=== PATIENT | female | born 1965 ===

== ENCOUNTER 2019-04-15 12:24 | Inpatient (IN) ==
[2019-04-15] MEDS ORDERED: VANCOMYCIN HCL 1,750 MG in SODIUM CHLORIDE 0.9% 500 ML IV ONE (12:53)
[2019-04-15] MEDS ORDERED: cefTRIAXone SODIUM 1,000 MG/50 ML BAG IV STA (12:53)
[2019-04-15] MEDS ORDERED: VANCOMYCIN CONSULT ACTIVE PRN (12:53)
[2019-04-15] MEDS ORDERED: SODIUM CHLORIDE 0.9% 1000ML 1,000 ML IV SCH (13:00)
[2019-04-15 13:34] LABS: Basophils # (auto) 0.01 K/uL (0-0.2); Basophils % (auto) 0.1 %; Eosinophils # (auto) 0.05 K/uL (0-0.5); Eosinophils % (auto) 0.7 %; Hematocrit (blood only) 41.3 % (37-47); Hemoglobin 13.5 g/dL (12.0-16.0); Immature Granulocytes # (auto) 0.01 K/uL (0.00-0.02); Immature Granulocytes % (auto) 0.1 %; Lymphocytes # (auto) 1.13 K/uL (1.2-3.4); Lymphocytes % (auto) 15.5 %; Mean Corpuscular Hemoglobin 29.7 pg (25-34); Mean Corpuscular Hgb Conc 32.7 g/dL (32-36); Mean Platelet Volume 11.1 fL (7.4-10.4); Monocytes # (auto) 0.48 K/uL (0.11-0.59); Monocytes % (auto) 6.6 %; Platelet Count 178 K/uL (130-400); RDW Coefficient of Variation 13.8 % (11.5-14.5); RDW Standard Deviation 45.9 fL (36.4-46.3); Red Blood Count 4.54 M/uL (4.2-5.4); White Blood Count 7.28 K/uL (4.8-10.8)
--- NOTE | 2019-04-15 13:43 | Emergency Department Note ---
Entered by Mik Alicia acting as a scribe for History of Present Illness General Chief complaint: Skin Problem Stated complaint: RASH ON BREAST AND STOMACH Time Seen by Provider: 04/15/19 12:40 Source: patient History of Present Illness Onset (ago): day(s) (yesterday) Location: chest (both breasts) and abdomen Pain Consistency: + other (worsening) Maximum Pain Intensity: 7 Quality: + other (rash) The patient is a 53 y/o female who presents to the ED w/ CC of a worsening rash to her breasts and abdomen beginning yesterday. The patient states she woke up two days ago with soreness and achiness to her joint. She reports she took a shower that evening and then woke up yesterday with a red splotch on her breast. The patient notes she was evaluated at urgent care, told she has mastitis, and started on Keflex. She states she started the Keflex yesterday morning. The patient reports she went to sleep last night, woke up this morning, and then noticed her rash spread to her right breast and abdomen. She notes she called urgent care back and was given a prescription for doxycycline but has not picked it up yet. The patient states she has a mastectomy scheduled for in a few weeks. She reports subjective fevers and denies drainage. The patient notes she had a breast reduction one year ago and did not have mesh put into her breast. She states she takes omeprazole daily and uses alcohol socially. The patient reports a history of a hysterectomy, appendectomy, and cholecystectomy. She denies using tobacco. Home Medications Home Medications Medication Instructions Recorded Confirmed Type cephalexin 500 mg PO QID 04/15/19 04/15/19 History ibuprofen 600 mg PO Q6H PRN 04/15/19 04/15/19 History omeprazole 20 mg PO QAM 04/15/19 04/15/19 History Allergies Allergy/AdvReac Type Severity Reaction Status Date / Time rofecoxib [From Vioxx] Allergy Intermediate Joint Pain Verified 04/15/19 14:28 Sulfa (Sulfonamide Allergy Intermediate Unknown Verified 04/15/19 14:28 Antibiotics) Past Med/Surg History Medical History GERD (gastroesophageal reflux disease) Surgical History H/O abdominoplasty H/O arthroscopic knee surgery H/O wisdom tooth extraction H/O: hysterectomy History of appendectomy History of bladder suspension procedure History of carpal tunnel surgery Hx of cholecystectomy Hx of tonsillectomy Family History Mother Dementia Father CHF (congestive heart failure) Social History Preferred Language: Romanian Communication Ability: Effective Magistrate Required: Yes Beliefs That Will Affect Care: None Current Living Situation: Spouse Other Information That Helps Us Care for You: No Feels Safe at Home: Yes Safety Concerns: Feels Safe At This Time Smoking Status: Former smoker Do You Dip or Chew Tobacco: No ; Second Hand Exp osure: No ; Hx Alcohol Use: Yes Alcohol type: wine Alcohol Intake Frequency: Weekly Hx Substance Use: No Review of Systems See HPI for pertinent positives & negatives. and A total of 10 systems reviewed and were otherwise negative Physical Exam Vital Signs Vital Signs - 24 hr 04/15/19 12:30 04/15/19 13:25 Temperature 36.8 C Temperature Source Oral Pulse Rate 95 H Pulse Rate [Apical] 83 Pulse Rhythm [Apical] Regular Respiratory Rate 20 18 Respiratory Effort / Characteristics Non-Labored Respiratory Depth Normal Respiratory Pattern Regular Blood Pressure 202/124 H Blood Pressure [Left Arm] 159/102 H Blood Pressure Mean 150 Blood Pressure Mean [Left Arm] 121 Blood Pressure Position [Left Arm] Sitting Pulse Oximetry 100 97 Oxygen Delivery Method Room Air Room Air Sepsis Recent Fever Within 48 Hours No Sepsis Action Taken by Nursing No Action Required GENERAL: Patient is awake alert in no acute distress patient is resting comfortably and showing no signs of anxiety EYES: The conjunctivae are clear. The pupils are round and reactive. EARS, NOSE, MOUTH AND THROAT: The nose is without any evidence of any deformity. Mucous membranes are moist. Tongue is midline. NECK: The neck is nontender and supple. RESPIRATORY: Normal respiratory effort is noted there is no evidence of wheezing rhonchi or rales CARDIOVASCULAR: Regular rate and rhythm noted there no murmurs rubs or gallops normal S1 normal S2. GASTROINTESTINAL: The abdomen is soft. Abdomen is nontender. MUSCULOSKELETAL/EXTREMITIES: There is no evidence of gross deformity full range of motion is noted in the hips and shoulders. SKIN: There is significant cellulitis noted over the anterior chest wall in the upper abdomen. This involves both breasts as well as the majority of the abdomen. There is no fluctuance noted in either breast. There is no drainage noted from the breast. NEUROLOGIC: Patient is awake alert and oriented x3. Course Course 1247: The patient was evaluated in room B10. A complete history and physical exam was performed. 1440: I reevaluated the patient and updated her of her current test results. She is agreeable to a hospitalist evaluation as I feel the cellulitics is too extensive 1447: I reviewed the patient's case with JULES Angulo, [facility], attending Dr. Tuttle. She will evaluate the patient for further management. Administered Medications Discontinued Medications Sodium Chloride (Nss 1000ml) 1,000 mls @ 999 mls/hr IV .Q1H1M MAINE Stop: 04/15/19 14:00 Last Infusion: 04/15/19 15:02 Dose: 0 mls/hr Documented by: [id number] Admin: 04/15/19 13:29 Dose: 999 mls/hr Documented by: [id number] Ceftriaxone Sodium (Rocephin) 1,000 mg in 50 mls @ 100 mls/hr IV NOW STA Stop: 04/15/19 13:22 Last Infusion: 04/15/19 15:02 Dose: 0 mls/hr Documented by: [id number] Admin: 04/15/19 13:29 Dose: 100 mls/hr Documented by: [id number] Vancomycin HCl 1,750 mg/ (Sodium Chloride) 535 mls @ 200 mls/hr IV NOW ONE Stop: 04/15/19 15:33 Last Infusion: 04/15/19 17:15 Dose: 0 mls/hr Documented by: [id number] Admin: 04/15/19 14:10 Dose: 200 mls/hr Documented by: [id number] Medical Decision Making Differential Diagnosis Differential diagnosis includes etiologies such as cellulitis, abscess, MRSA infection, DVT, necrotizing fasciitis, dermatitis, drug eruption, as well as others were entertained. Medical Records Attestation: I reviewed the patient's medical records. Home Medications Current Medication List: was personally reviewed by me Laboratory Data Attestation: I reviewed the patient's lab results. Result diagrams: 04/15/19 13:25 04/15/19 13:25 Lab Results 04/15/19 04/15/19 04/15/19 Range/Units 13:25 13:25 13:25 WBC 7.28 (4.8-10.8) K/uL RBC 4.54 (4.2-5.4) M/uL Hgb 13.5 (12.0-16.0) g/dL Hct 41.3 (37-47) % MCV 91.0 (80-100) fL MCH 29.7 (25-34) pg MCHC 32.7 (32-36) g/dL RDW Std Deviation 45.9 (36.4-46.3) fL RDW Coeff of Lonny 13.8 (11.5-14.5) % Plt Count 178 (130-400) K/uL MPV 11.1 H (7.4-10.4) fL Immature Gran % (Auto) 0.1 % Neut % (Auto) 77.0 % Lymph % (Auto) 15.5 % Morrill % (Auto) 6.6 % Eos % (Auto) 0.7 % Baso % (Auto) 0.1 % Immature Gran # (Auto) 0.01 (0.00-0.02) K/uL Neut # (Auto) 5.60 (1.4-6.5) K/uL Lymph # (Auto) 1.13 L (1.2-3.4) K/uL Morrill # (Auto) 0.48 (0.11-0.59) K/uL Eos # (Auto) 0.05 (0-0.5) K/uL Baso # (Auto) 0.01 (0-0.2) K/uL ESR 29 H (0-21) mm/hr Sodium 140 (136-145) mmol/L Potassium 3.4 L (3.5-5.1) mmol/L Chloride 110 H (98-107) mmol/L Carbon Dioxide 28 (21-32) mmol/L Anion Gap 2.0 L (3-11) BUN 15 (7-18) mg/dl Creatinine 0.65 (0.6-1.2) mg/dl Est Cr Clr Drug Dosing 104.4 ml/min Est GFR ( Amer) 115.8 Est GFR (Non-Af Amer) 99.9 BUN/Creatinine Ratio 22.5 H (10-20) Glucose 98 (70-99) mg/dl Calcium 8.7 (8.5-10.1) mg/dl Total Bilirubin 0.4 (0.2-1) mg/dl AST 14 L (15-37) U/L ALT 23 (12-78) U/L Alkaline Phosphatase 95 (45-117) U/L C-Reactive Protein 10.60 H (0-0.29) mg/dl Total Protein 7.2 (6.4-8.2) gm/dl Albumin 3.5 (3.4-5.0) gm/dl Globulin 3.7 (2.5-4.0) gm/dl Albumin/Globulin Ratio 0.9 (0.9-2) Procalcitonin (0-0.5) ng/ml 04/15/19 Range/Units 13:25 WBC (4.8-10.8) K/uL RBC (4.2-5.4) M/uL Hgb (12.0-16.0) g/dL Hct (37-47) % MCV (80-100) fL MCH (25-34) pg MCHC (32-36) g/dL RDW Std Deviation (36.4-46.3) fL RDW Coeff of Lonny (11.5-14.5) % Plt Count (130-400) K/uL MPV (7.4-10.4) fL Immature Gran % (Auto) % Neut % (Auto) % Lymph % (Auto) % Morrill % (Auto) % Eos % (Auto) % Baso % (Auto) % Immature Gran # (Auto) (0.00-0.02) K/uL Neut # (Auto) (1.4-6.5) K/uL Lymph # (Auto) (1.2-3.4) K/uL Morrill # (Auto) (0.11-0.59) K/uL Eos # (Auto) (0-0.5) K/uL Baso # (Auto) (0-0.2) K/uL ESR (0-21) mm/hr Sodium (136-145) mmol/L Potassium (3.5-5.1) mmol/L Chloride (98-107) mmol/L Carbon Dioxide (21-32) mmol/L Anion Gap (3-11) BUN (7-18) mg/dl Creatinine (0.6-1.2) mg/dl Est Cr Clr Drug Dosing ml/min Est GFR ( Amer) Est GFR (Non-Af Amer) BUN/Creatinine Ratio (10-20) Glucose (70-99) mg/dl Calcium (8.5-10.1) mg/dl Total Bilirubin (0.2-1) mg/dl AST (15-37) U/L ALT (12-78) U/L Alkaline Phosphatase (45-117) U/L C-Reactive Protein (0-0.29) mg/dl Total Protein (6.4-8.2) gm/dl Albumin (3.4-5.0) gm/dl Globulin (2.5-4.0) gm/dl Albumin/Globulin Ratio (0.9-2) Procalcitonin 0.06 (0-0.5) ng/ml Imaging Data Radiologist's Impression: Radiology results as stated below per my review and the radiologist's interpretation: XR chest 1V portable CLINICAL HISTORY: fever COMPARISON STUDY: No previous studies for comparison. FINDINGS: Lung volumes are normal. Lungs are clear. There is no pneumothorax or pleural effusion. Cardiac size is normal. Mediastinal contours are normal. There is no evidence for pulmonary edema. There is mild elevation of the right hemidiaphragm. IMPRESSION: No acute cardiopulmonary findings. ACT 112: Negative or not required by law. Electronically signed by: Quinton Kim M.D. 04/15/2019 2:04 PM KUB CLINICAL HISTORY: Infection. Abdominal pain. COMPARISON STUDY: None. FINDINGS: The bowel gas pattern is normal. Pelvic calcifications statistically reflect phleboliths. There is no evidence for free air although sensitivity is diminished on this supine exam. IMPRESSION: No evidence for a bowel obstruction. ACT 112: Negative or not required by law. Electronically signed by: Quinton Kim M.D. 04/15/2019 2:05 PM Blood Pressure Blood Pressure Findings: Elevated blood pressure Blood Pressure Disposition: elevated BP felt to be situational MDM Narrative The patient is a 53-year-old female who presented to the emergency department for an evaluation of redness to her breast. The patient started having redness to her left breast which then spread across her chest wall into her right breast and then into her abdominal wall. The patient at this time is very extensive ce llulitis noted. The patient was treated with IV fluids and IV antibiotics in the emergency department. She was started on an oral antibiotic as an outpatient but this does not appear to be helpful. I discussed the patient's laboratory and radiographic studies with her. I discussed her case with the on- call [facility] hospitalist group. They have agreed to evaluate the patient in the emergency department for further management disposition. I did discuss further imaging with the admitting team. An ultrasound was ordered to rule out breast abscess as a cause for the patient's cellulitis. The patient was reevaluated multiple times. She was agreeable to evaluation by the hospitalist group. Impression & Plan Abdominal wall cellulitis, Cellulitis of breast Discharge Plan Visit Data *Final* Discharge Date/Time: 04/15/19 15:32 Chief Complaint: Skin Problem Stated Complaint: RASH ON BREAST AND STOMACH ED Provider: Jonathan Ghosh Discharge Problem: Abdominal wall cellulitis, Cellulitis of breast Patient Disposition: Admitted As Inpatient Discharge Instructions Interventions: ED Discharge Assessment Last Done: 04/15/19 15:32 The scribe's documentation has been prepared under my direction and personally reviewed by me in its entirety. I confirm that the note above accurately reflects all work, treatment, procedures, and medical decision making performed by me.
[2019-04-15 13:51] LABS: Albumin Level 3.5 gm/dl (3.4-5.0); BUN Creatinine Ratio 22.5 (10-20); Calcium 8.7 mg/dl (8.5-10.1); Creatinine Clr Calc Pharmacy 104.4 ml/min; Est GFR (African American) 115.8; Est GFR (Non-African American) 99.9; Potassium 3.4 mmol/L (3.5-5.1)
[2019-04-15 13:54] LABS: Albumin Globulin Ratio 0.9 (0.9-2); Bilirubin,Total 0.4 mg/dl (0.2-1); C Reactive Protein 10.6 mg/dl (0-0.29); Globulin 3.7 gm/dl (2.5-4.0); Total Protein 7.2 gm/dl (6.4-8.2)
--- NOTE | 2019-04-15 14:05 | XRay Report ---
XR chest 1V portable CLINICAL HISTORY: fever COMPARISON STUDY: No previous studies for comparison. FINDINGS: Lung volumes are normal. Lungs are clear. There is no pneumothorax or pleural effusion. Car diac size is normal. Mediastinal contours are normal. There is no evidence for pulmonary edema. There is mild elevation of the right hemidiaphragm. IMPRESSION: No acute cardiopulmonary findings. ACT 112: Negative or not required by law. Electronically signed by: Quinton Kim M.D. 04/15/2019 2:04 PM
--- NOTE | 2019-04-15 14:07 | XRay Report ---
KUB CLINICAL HISTORY: Infection. Abdominal pain. COMPARISON STUDY: None. FINDINGS: The bowel gas pattern is normal. Pelvic calcifications statistically reflect phleboliths. T here is no evidence for free air although sensitivity is diminished on this supine exam. IMPRESSION: No evidence for a bowel obstruction. ACT 112: Negative or not required by law. Electronically signed by: Quinton Kim M.D. 04/15/2019 2:05 PM
--- NOTE | 2019-04-15 16:11 | Ultrasound Report ---
US breast BI limited HISTORY: 53 years-old Female possible abscess acute pain of the bilateral breasts with clinical conc jen for possible abscess COMPARISON: Chest radiographs of same day TECHNIQUE: Multiple real-time sonographic images of the bilateral breasts were obtained assessing gra yscale appearance and color flow FINDINGS: RIGHT: Mild subcutaneous edema is noted throughout the imaged right breast with focus of edema/fluid measuri ng up to 1.0 cm at the 5:00 distribution involving the superficial subcutaneous tissues. No large joseph inable fluid collection. No solid mass identified. LEFT: Mild subcutaneous edema throughout the left breast is also noted with a tiny linear fluid collection measuring up to 2.2 x 0.2 x 0.8 cm within the 8:00 distribution of the superficial subcutaneous tissu es approximately 3 mm from the skin surface. No large drainable fluid collection or solid mass identi fied. IMPRESSION: Subcutaneous edema of the bilateral breasts may correlate with cellulitis. There is a 1.0 cm fluid collection of the right breast with a 2.2 cm collection of the left breast suggestive of lo calized edema/phlegmon versus developing abscesses. No large drainable fluid collection or solid mass identified. Close clinical follow-up is recommended. ACT 112: Negative or not required by law. The above report was generated using voice recognition software. It may contain grammatical, syntax o r spelling errors. Electronically signed by: Davon Wade M.D. 04/15/2019 4:09 PM
--- NOTE | 2019-04-15 16:28 | Pharmacy Report ---
Pharmacy Abx Initial Consult - Date of Service April 15, 2019 - Pharmacy Dosing Scope Date of Consult: 04/15/2019 Consultation requested by: Lyric Mcmillan Pharmacy is consulted to initiate vancomycin IV dosing therapy, order appropriate labs and adjust drug dose/frequency. - Subjective The patient is a 53 year old F admitted on 04/15/19 14:47 with cellulitis on breast and abdominal area. She has received one day of Keflex. - Objective Height: 5 ft 4 in Weight: 87 kg Vital Signs (Past 12hrs): Vital Signs Temp Pulse Pulse Resp BP BP Pulse Ox 04/15/19 16:00 37 C 86 20 174/96 H 98 04/15/19 13:25 83 18 159/102 H 97 04/15/19 12:30 36.8 C 95 H 20 202/124 H 100 Lab Results (24hrs): Laboratory Tests (24 Hours) 04/15/19 04/15/19 04/15/19 13:25 13:25 13:25 WBC Neut # (Auto) ESR 29 H Creatinine 0.65 Est Cr Clr Drug Dosing 104.4 C-Reactive Protein 10.60 H Procalcitonin 0.06 04/15/19 13:25 WBC 7.28 Neut # (Auto) 5.60 ESR Creatinine Est Cr Clr Drug Dosing C-Reactive Protein Procalcitonin - Risk Factors for Resistance * Antimicrobial use within the last 90 days (keflex x 1 day) - Assessment & Plan Assessment 53 year old F admitted with cellulitis on breast area and abdomen. Patient has received one day of Keflex. Had a breast reduction 1 year ago without mesh placement. Plan vancomycin for treatment of cellulitis Vancomycin IV Patient meets criteria for vancomycin AUC dosing nomogram AUC/JAY is the preferred PK/PD target for vancomycin * Target AUC/JAY = 400-600 * AUC guided dosing is effective and associated with decreased risk of nephrotoxicity Pharmacy will continue to follow and will adjust dose/frequency as necessary. Thank you.
--- NOTE | 2019-04-15 17:10 | History & Physical Report ---
Date of Service April 15, 2019 Assessment & Plan (1) Cellulitis of breast: (2) Breast abscess: -Admit to [facility] -Patient presenting from home with reports of bilateral breast and abdominal wall redness that began 2 days ago. Was seen at urgent care and placed on cephalexin. -In the ED, patient is hemodynamically stable, afebrile, no leukocytosis. Does not appear septic. -History of bilateral breast reduction June [address] [facility] in [place] -No known recent trauma or bites. -Breast ultrasound shows 1.0 cm fluid collection of the right breast with a 2.2 cm collection of the left breast suggestive of localized edema/phlegmon versus developing abscesses. -Outline erythematous area with skin marker to monitor for improvement -S/p IV Vanco and IV ceftriaxone in the ED, will continue with -General surgery consult for possible abscess (3) Elevated blood pressure, situational: -BP 174/96 -Likely situational -Monitor, provide rx if persists (4) GERD (gastroesophageal reflux disease): -Continue PPI (5) DVT prophylaxis: -SQ Lovenox History of Present Illness Chief Complaint: Breast and abdominal redness Primary Care Provider: Randolph Chawla 53-year-old female who presents the ED for evaluation of bilateral breast and abdominal wall redness. Patient reports that 2 days ago she developed redness of her left breast. She also reported associated fever and body aches. Reported temperature at home was 100. She was evaluated at urgent care and placed on a course of cephalexin. Yesterday, when she woke up, the redness had significantly worsened extending over to her right breast and over her abdominal wall. Patient reports no further fever since yesterday. Patient denies any known trauma to the area or bites. No noticeable drainage. She denies chest pain and shortness of breath. No lightheadedness, dizziness, diaphoresis, syncopal events. She denies abdominal pain, nausea, vomiting, diarrhea. No urinary symptoms. In the ED, patient is hemodynamically stable. There is no leukocytosis or fever. Patient was given IV ceftriaxone and IV vancomycin. Allergies Allergy/AdvReac Type Severity Reaction Status Date / Time rofecoxib [From Vioxx] Allergy Intermediate Joint Pain Verified 04/15/19 14:28 Sulfa (Sulfonamide Allergy Intermediate Unknown Verified 04/15/19 14:28 Antibiotics) Home Medications Home Medications Medication Instructions Recorded Confirmed Type cephalexin 500 mg PO QID 04/15/19 04/15/19 History ibuprofen 600 mg PO Q6H PRN 04/15/19 04/15/19 History omeprazole 20 mg PO QAM 04/15/19 04/15/19 History Past Med/Surg History Medical History GERD (gastroesophageal reflux disease) Surgical History H/O abdominoplasty H/O arthroscopic knee surgery H/O wisdom tooth extraction H/O: hysterectomy History of appendectomy History of bladder suspension procedure History of carpal tunnel surgery Hx of cholecystectomy Hx of tonsillectomy Family History Mother Dementia Father CHF (congestive heart failure) Social History Preferred Language: Uzbek Communication Ability: Effective Cone Examiner Required: Yes Beliefs That Will Affect Care: None Current Living Situation: Spouse Other Information That Helps Us Care for You: No Feels Safe at Home: Yes Safety Concerns: Feels Safe At This Time Smoking Status: Former smoker Do You Dip or Chew Tobacco: No ; Second Hand Exposure: No ; Hx Alcohol Use: Yes Alcohol type: wine Alcohol Intake Frequency: Weekly Hx Substance Use: No Review of Systems Review of Systems: ROS per HPI, all other systems reviewed and negative Physical Exam Constitutional: WD/WN, vitals as above Eyes: PERRL, conjunctivae normal, anicteric sclerae ENMT: external ear and nose normal, oropharynx normal Respiratory: normal respiratory effort, lungs clear to auscultation Cardiovascular: Rate/Rhythm: regular rate and regular rhythm Vessels: normal peripheral pulses Extremities: no edema Gastrointestinal (Abdomen): normal bowel sounds, soft, nontender, no hepatosplenomegaly Musculoskeletal: no cyanosis or clubbing, extremities motor strength 5/5 Skin: no rashes, warm and dry Erythema noted over both breasts, left > right. Erythema extends over the abdominal wall. Warm to touch. No areas of fluctuance noted. No open areas or drainage noted. Neurologic: PERRL, EOMI, accommodation nl, no face palsy, no dysarthria Psychiatric: A+Ox3, euthymic affect Results & Data Vital Signs (Past 12 Hours) Vital Signs Temp Pulse Pulse Resp BP BP Pulse Ox 04/15/19 16:00 37 C 86 20 174/96 H 98 04/15/19 13:25 83 18 159/102 H 97 04/15/19 12:30 36.8 C 95 H 20 202/124 H 100 Laboratory Results Short CBC 04/15/19 Range/Units 13:25 WBC 7.28 (4.8-10.8) K/uL Hgb 13.5 (12.0-16.0) g/dL Hct 41.3 (37-47) % Plt Count 178 (130-400) K/uL BMP 04/15/19 13:25 Sodium 140 Potassium 3.4 L Chloride 110 H Carbon Dioxide 28 BUN 15 Creatinine 0.65 Glucose 98 Calcium 8.7 Liver Function 04/15/19 Range/Units 13:25 Total Bilirubin 0.4 (0.2-1) mg/dl AST 14 L (15-37) U/L ALT 23 (12-78) U/L Alkaline Phosphatase 95 (45-117) U/L Albumin 3.5 (3.4-5.0) gm/dl Diagnostic Findings CXR IMPRESSION: No acute cardiopulmonary findings. KUB XR IMPRESSION: No evidence for a bowel obstruction. BILATERAL BREAST ULTRASOUND IMPRESSION: Subcutaneous edema of the bilateral breasts may correlate with cellulitis. There is a 1.0 cm fluid collection of the right breast with a 2.2 cm collection of the left breast suggestive of localized edema/phlegmon versus developing abscesses. No large drainable fluid collection or solid mass identified. Close clinical follow-up is recommended. Code Status & VTE Plan VTE Prophylaxis Plan VTE Prophylaxis will be ordered: Yes Supervising Physician Co-Signing Physician Notes Attending addendum The patient was seen and examined in the medical floor in presence of the She was admitted with the rapidly spreading infection involving the left breast Denies to have any skin break but noted to have a pimple on the left side to start with Has been complaining of weakness tiredness aches and pains and likely has a fever Denies any other symptoms On examination She is obese, lying in the bed without any acute distress Blood pressure noted to be high at 174/96 Chestclear to auscultate bilaterally Examination of the chest wall showed cellulitis involving the entire front of the chest that is going up to mid abdomen. The skin was red, tender to palpate, increased local temperature but without any skin break and/or dryness. Heart-S1-S2,, regular Abdomen-benign Extremities-trace edema bilaterally SURVEY RESEARCH ANALYST alert awake and oriented x3, Admission labs and imaging studies noted Noted to have small fluid collection/abscess on ultrasound Surgery is consulted Antibiotics have been started Agree with assessment plan as outlined above by Lyric buck
--- NOTE | 2019-04-15 19:23 | Surgery Consultation ---
Date of Consultation April 15, 2019 Assessment & Plan (1) Breast abscess: All abscesses of the breast without overlying skin necrosis or definite shiny areas that could localize the abscess size is best treated with ultrasound guidance aspiration by radiologist Continue with broad-spectrum antibiotics for now Present on Admission?: Yes History of Present Illness Reason for Consultation: breast abscess Attending Physician: Aleyda Tuttle MD History of Present Illness This very pleasant 53-year-old female was admitted for cellulitis both breasts and abdomen Ultrasound showed 1 cm small abscess right breast 2.2 cm abscess left breast we were consulted for this The patient states that she remarkably good health on Thursday approximately 48 hours ago started having some flulike symptoms and then noticed that she had a redness on her left breast went down to an urgent care center and was started on Keflex and this progressively became worse and she called him to this see further recommendations and they recommended her getting an ultrasound and mammogram and changed her antibiotic to dicloxacillin the patient never picked up her prescription and she felt she needed more attention and came to the emergency room with the above findings The patient and her are from [place] they are live in the [facility] and last few days the patient has been working outside she denies any known history of possibly spider bites Her past history patient had breast reduction surgery approximately a year ago in [place] and she had done well from the procedure Allergies Allergy/AdvReac Type Severity Reaction Status Date / Time rofecoxib [From Vioxx] Allergy Intermediate Joint Pain Verified 04/15/19 14:28 Sulfa (Sulfonamide Allergy Intermediate Unknown Verified 04/15/19 14:28 Antibiotics) Home Medications Home Medications Medication Instructions Recorded Confirmed Type cephalexin 500 mg PO QID 04/15/19 04/15/19 History ibuprofen 600 mg PO Q6H PRN 04/15/19 04/15/19 History omeprazole 20 mg PO QAM 04/15/19 04/15/19 History Patient History Medical History GERD (gastroesophageal reflux disease) Surgical History H/O abdominoplasty H/O arthroscopic knee surgery H/O wisdom tooth extraction H/O: hysterectomy History of appendectomy History of bladder suspension procedure History of carpal tunnel surgery Hx of cholecystectomy Hx of tonsillectomy Family History Mother Dementia Father CHF (congestive heart failure) Social History Preferred Language: Maori Communication Ability: Effective Cell Stripper Final Required: Yes Beliefs That Will Affect Care: None Current Living Situation: Spouse Other Information That Helps Us Care for You: No Feels Safe at Home: Yes Safety Concerns: Feels Safe At This Time Smoking Status: Former smoker Do You Dip or Chew Tobacco: No ; Second Hand Exposure: No ; Hx Alcohol Use: Yes Alcohol type: wine Alcohol Intake Frequency: Weekly Hx Substance Use: No Physical Exam Physical Exam: Patient is alert coherent laying in bed her is in the room On examination the both chest and abdomen were outlined by marker as far as the cellulitis and it is interesting it is almost mirror image on both breasts which extends around three quarters of the breast sparing the upper and right upper quadrant the skin is not shiny areas edema the abdominal extension extends both upper quadrants and down to the level of the umbilicus Both breasts are slightly tender to touch and obviously I cannot palpate any abscess given the small size Results & Data Vital Signs (Past 12 Hours) Vital Signs Temp Pulse Pulse Resp BP BP Pulse Ox 04/15/19 16:00 37 C 86 20 174/96 H 98 04/15/19 13:25 83 18 159/102 H 97 04/15/19 12:30 36.8 C 95 H 20 202/124 H 100 PG Care Time/CCT Total # of Minutes Spent Total Time Spent with Patient: Total time spent is greater than 50% in coordination of care (as documented) at patient's floor/unit and/or counseling patient: Coding Level of Care Code 18306 Inpt Consult Level 3 Diagnoses Breast abscess N61.1
[2019-04-15] MEDS: ACETAMINOPHEN 325 MG TAB PO PRN (19:34)
[2019-04-15] MEDS ORDERED: ENOXAPARIN INJ 40 MG/0.4 ML SYR SQ SCH (21:00)
[2019-04-15] MEDS: VANCOMYCIN HCL 1,250 MG in SODIUM CHLORIDE 0.9% 250 ML IV SCH (21:33)
[2019-04-16] MEDS: VANCOMYCIN HCL 1,250 MG in SODIUM CHLORIDE 0.9% 250 ML IV SCH ×3 (05:34→21:28)
[2019-04-16 06:18] LABS: Hematocrit (blood only) 37.7 % (37-47); Hemoglobin 12.2 g/dL (12.0-16.0); Mean Corpuscular Hemoglobin 29.9 pg (25-34); Mean Corpuscular Hgb Conc 32.4 g/dL (32-36); Mean Corpuscular Volume 92.4 fL (80-100); Mean Platelet Volume 11.3 fL (7.4-10.4); Platelet Count 179 K/uL (130-400); RDW Standard Deviation 47.7 fL (36.4-46.3); Red Blood Count 4.08 M/uL (4.2-5.4); White Blood Count 6.97 K/uL (4.8-10.8)
[2019-04-16 07:01] LABS: BUN Creatinine Ratio 26.2 (10-20); Calcium 8.3 mg/dl (8.5-10.1); Est GFR (African American) 121.7; Potassium 3.6 mmol/L (3.5-5.1)
[2019-04-16] MEDS: PANTOprazole 40 MG TAB PO SCH (08:07)
--- NOTE | 2019-04-16 10:17 | Surgery Progress Note ---
Date of Service April 16, 2019 Assessment & Plan (1) Breast abscess: patient stable from yesterday, cellulitis mildly improved wbc: 6.9 and pt afebrile not convinced the small breast abscesses are contributing to current issues agree with an ongoing course of abx if does not improve could consider US guided aspiration of the small breast abscesses no surgical intervention warranted at this time dispo planning per medicine pt seen and examined with Dr. Matamoros Subjective Patient sitting up in bed eating breakfast. Offers no new complaints. Physical Exam Physical Exam: awake/alert Chest (Breasts): Additional Comments: + erythema of bilateral breasts extending down to upper/mid abdomen. somewhat improved Results & Data Vital Signs (Past 12 Hours) Vital Signs Temp Pulse Resp BP Pulse Ox 04/16/19 07:20 37 C 69 16 145/91 H 97 PG Care Time/CCT Total # of Minutes Spent Total Time Spent with Patient: Total time spent is greater than 50% in coordination of care (as documented) at patient's floor/unit and/or counseling patient: Coding Level of Care Code 40903 Subseq Hosp Care Lvl 1 Diagnoses Breast abscess N61.1
[2019-04-16] MEDS: cefTRIAXone SODIUM 2,000 MG in DEXTROSE 5% 50 ML/50 ML BAG IV SCH (13:00)
[2019-04-16] MEDS ORDERED: cefTRIAXone SODIUM 1,000 MG/50 ML BAG IV SCH (13:00)
--- NOTE | 2019-04-16 18:06 | Hospitalist Progress Note ---
Date of Service April 16, 2019 Assessment & Plan (1) Cellulitis of breast: diffuse cellulitis - involving large area of ant abdominal wall , bilateral lower breast area started few days back cont on IV vancomycin and rocephin (2) Breast abscess: -Patient admitted with complaint of bilateral breast and abdominal wall redness that began 2 days ago. Was seen at urgent care and placed on cephalexin. area of redness and pain continued to progress was admitted to hospital No report of trauma or insect bite no new clothes , detergent or new food Patient reports patient had generalized body ache, feverish chills prior development of redness and cellulitis on the breast area Order for Lyme titer Remains hemodynamically stable no fever no leukocytosis -History of bilateral breast reduction June [address] [facility] in [place] -Breast ultrasound shows 1.0 cm fluid collection of the right breast with a 2.2 cm collection of the left breast suggestive of localized edema/phlegmon versus developing abscesses. -Outlined erythematous area with skin marker : area of redness appears to improved pt reports of improvement of symptom: decrease pain and discomfort since admission - continue with IV vancomycin and Rocephin Surgery consulted appreciate input, recommends continue medical management for now Surgery note: Continue IV antibiotics if does not improve could consider US guided aspiration of the small breast abscesses no surgical intervention warranted at this time (3) DVT prophylaxis: -low risk scd and teds ambulate Admission and Anticipated Discharge Date Admission Date: April 15, 2019 DISPOSITION : pt will be continued with IV abx for another 24-48 hrs if improvement of symptoms and no surgery needed plan to dc home with PO abx Subjective pain and welling on left breast and ant abdominal wall has improved no fever overnight still has significant erythema on lower part of bilateral breast L> R pt offers no other complain no other rash in any other part of body Review of Systems Review of Systems: All systems reviewed & are unremarkable except as noted in HPI & below Integumentary: + erythema (anterior abdominal wall /bilateral breast area ) Physical Exam Constitutional: WD/WN, vitals as above no acute distress Eyes: PERRL, conjunctivae normal, anicteric sclerae ENMT: external ear and nose normal, oropharynx normal Neck: trachea midline, no thyromegaly Respiratory: normal respiratory effort, lungs clear to auscultation Cardiovascular: RRR, no murmur, no edema Chest (Breasts): Breast: + abnormal inspection of breast (diffuse erythema bilateral breast area L> r /increased warmth and tendernes) Additional Comments: erythema , increased warmth , tenderness area involving lower ep igastric area to ant abdominal wall and lower part of bilateral breast , area is marked with line Musculoskeletal: no cyanosis or clubbing, extremities motor strength 5/5 Skin: + rash (large area of erythema ant abdominal wall and bilateral breast ) Neurologic: PERRL, EOMI, accommodation nl, no face palsy, no dysarthria Psychiatric: A+Ox3, euthymic affect Results & Data ([facility]) Vital Signs (Past 12 Hours) Vital Signs Temp Pulse Pulse Resp BP Pulse Ox 04/16/19 15:42 36.7 C 74 18 137/81 96 04/16/19 07:20 37 C 69 16 145/91 H 97
[2019-04-16 19:56] LABS: Lyme Ab IgG w/WB Rflx Negative (Negative); Lyme Ab IgM w/WB Rflx Negative (Negative)
[2019-04-17] MEDS ORDERED: VANCOMYCIN TROUGH ONE (05:30)
[2019-04-17] MEDS: VANCOMYCIN HCL 1,250 MG in SODIUM CHLORIDE 0.9% 250 ML IV SCH ×3 (05:43→21:53)
[2019-04-17 05:47] LABS: Creatinine Clr Calc Pharmacy 126.6 ml/min; Est GFR (African American) 123.1; Est GFR (Non-African American) 106.2
[2019-04-17] MEDS: PANTOprazole 40 MG TAB PO SCH (07:50)
--- NOTE | 2019-04-17 08:36 | Pharmacy Report ---
Pharmacy Abx Dose Short Note - Date of Service April 17, 2019 - Assessment & Plan Assessment 53 year old F receiving empiric vancomycin and ceftriaxone for treatment of cellulitis of breast Day # 3 of antimicrobial therapy. No cultures obtained, no leukocytosis, afebrile, per notes: cellulitis is mildly improved. Plan Vancomycin * Patient meets criteria for vancomycin AUC dosing nomogram * AUC/JAY is the preferred PK/PD target for vancomycin * Target AUC/JAY = 400-600 * Trough level of 16.4 mcg/mL is predicted to achieve target AUC/JAY - continue current dose of 1250 mg IV q8h * AUC guided dosing is effective and associated with decreased risk of nephrotoxicity Ceftriaxone * Continue 2 g IV q24h Pharmacy will continue to follow and will adjust dose/frequency as necessary. Thank you.
--- NOTE | 2019-04-17 09:15 | Surgery Progress Note ---
Date of Service April 17, 2019 Assessment & Plan (1) Breast abscess: cellulitis improved not convinced the small breast abscesses are contributing to current issues consider US guided aspiration tomorrow vs discharge pt seen and examined with Dr. Matamoros Subjective had some itching from aloe lotion applied to chest, otherwise no changes Physical Exam Chest (Breasts): Additional Comments: less erythema, similar pattern Results & Data Vital Signs (Past 12 Hours) Vital Signs Temp Pulse Resp BP Pulse Ox 04/17/19 07:29 36.8 C 70 16 136/87 96 04/16/19 22:00 36.6 C 74 20 148/89 H 96 PG Care Time/CCT Total # of Minutes Spent Total Time Spent with Patient: Total time spent is greater than 50% in coordination of care (as documented) at patient's floor/unit and/or counseling patient: Coding Level of Care Code 53670 Subseq Hosp Care Lvl 1 Diagnoses Breast abscess N61.1
[2019-04-17] MEDS: cefTRIAXone SODIUM 2,000 MG in DEXTROSE 5% 50 ML/50 ML BAG IV SCH (13:17)
[2019-04-17] MEDS: ACETAMINOPHEN 325 MG TAB PO PRN (14:13)
--- NOTE | 2019-04-17 14:16 | Hospitalist Progress Note ---
Date of Service April 17, 2019 Assessment & Plan (1) Cellulitis of breast: redness /tenderness continues to improve increased itching with application of aloe vera lotion ? Component of contact dermatitis ? will do trial of medrol dose pack presented with diffuse cellulitis - involving large area of ant abdominal wall , bilateral lower breast area started few days back on IV vancomycin and rocephin -symptoms improving (2) Breast abscess: -Patient admitted with complaint of bilateral breast and abdominal wall redness that began 2 days ago. Was seen at urgent care and placed on cephalexin. No report of trauma or insect bite no new clothes , detergent or new food area of redness and pain continued to progress was admitted to hospital Patient reports patient had generalized body ache, feverish chills prior development of redness and cellulitis on the breast area Order for Lyme titer Remains hemodynamically stable no fever no leukocytosis -History of bilateral breast reduction June 2018 with [facility] in [place] -Breast ultrasound shows 1.0 cm fluid collection of the right breast with a 2.2 cm collection of the left breast suggestive of localized edema/phlegmon versus developing abscesses. -Outlined erythematous area with skin marker : area of redness appears to improved pt reports of improvement of symptom: decrease pain and discomfort since admission - Surgery consulted appreciate input, recommends continue medical management for now (3) DVT prophylaxis: -low risk scd and teds ambulate DISPOSITION ; plan to change abx to PO dc home with PO abx in next 1-2 days if clinically improves Admission and Anticipated Discharge Date Admission Date: April 15, 2019 Anticipated date of discharge: 04/18/19 Subjective redness and tenderness on bilateral breast area and ant abdominal wall has improved started to experience dryness and itching on ant abdomen area tried Aloe vera lotion -which made symptom /itching worse no fever or chills offers no other complain Review of Systems Review of Systems: ROS per HPI, all other systems reviewed and negative Integumentary: + erythema (anterior abdominal wall /bilateral breast area /improved ) Physical Exam Constitutional: WD/WN, vitals as above no acute distress Eyes: PERRL, conjunctivae normal, anicteric sclerae ENMT: external ear and nose normal, oropharynx normal Neck: trachea midline, no thyromegaly Respiratory: normal respiratory effort, lungs clear to auscultation Cardiovascular: RRR, no murmur, no edema Chest (Breasts): Breast: + abnormal inspection of breast (diffuse erythema bilateral breast area L> r /increased warmth and tendernes) Musculoskeletal: no cyanosis or clubbing, extremities motor strength 5/5 Skin: + rash (large area of erythema ant abdominal wall and bilateral breast ) Neurologic: PERRL, EOMI, accommodation nl, no face palsy, no dysarthria Psychiatric: A+Ox3, euthymic affect Results & Data ([facility]) Vital Signs (Past 12 Hours) Vital Signs Temp Pulse Resp BP Pulse Ox 04/17/19 07:29 36.8 C 70 16 136/87 96
[2019-04-17] MEDS ORDERED: DiphenhydrAMINE 2%/ZINC 0.1% CREAM 28GM TUBE EXT PRN (18:10)
[2019-04-17] MEDS ORDERED: methylPREDNISolone 4 MG TAB, 6 DAY TAPER PO STA (18:17)
[2019-04-17] MEDS: methylPREDNISolone 4 MG TAB PO SCH ×2 (19:42→21:52)
[2019-04-18] MEDS ORDERED: cloNIDine HCL 0.1 MG TAB PO ONE (01:45)
[2019-04-18] MEDS: VANCOMYCIN HCL 1,250 MG in SODIUM CHLORIDE 0.9% 250 ML IV SCH ×2 (05:48→15:28)
[2019-04-18 06:33] LABS: Creatinine Clr Calc Pharmacy 103.6 ml/min; Est GFR (African American) 115.3; Est GFR (Non-African American) 99.4
[2019-04-18 07:38] VITALS: TEMP 97.7; O2SAT 94
[2019-04-18] MEDS: PANTOprazole 40 MG TAB PO SCH (07:48)
[2019-04-18] MEDS: methylPREDNISolone 4 MG TAB PO SCH ×2 (07:48→12:47)
[2019-04-18] MEDS: ACETAMINOPHEN 325 MG TAB PO PRN (07:53)
--- NOTE | 2019-04-18 12:22 | Surgery Progress Note ---
Date of Service April 18, 2019 Assessment & Plan (1) Breast abscess: improving does not need drainage at this time, consider outpatient U/S for f/u med management per hospitalist team seen with Dr. Matamoros will sign off (2) Abdominal wall cellulitis: Subjective no itching, feels better overall Physical Exam Chest (Breasts): Additional Comments: erythema improving Results & Data Vital Signs (Past 12 Hours) Vital Signs Temp Pulse Resp BP Pulse Ox 04/18/19 07:38 36.5 C 68 20 142/89 H 94 04/18/19 01:42 177/106 H PG Care Time/CCT Total # of Minutes Spent Total Time Spent with Patient: Total time spent is greater than 50% in coordination of care (as documented) at patient's floor/unit and/or counseling patient: Coding Level of Care Code None Diagnoses Breast abscess N61.1 Abdominal wall cellulitis L03.311
[2019-04-18] MEDS: cefTRIAXone SODIUM 2,000 MG in DEXTROSE 5% 50 ML/50 ML BAG IV SCH (12:47)
[2019-04-18 14:30] VITALS: BP 140/90; PULSE 69
--- NOTE | 2019-04-18 15:21 | Discharge Summary ---
Date of Service April 18, 2019 Admission HPI Per Admitting Provider 53-year-old female who presents the ED for evaluation of bilateral breast and abdominal wall redness. Patient reports that 2 days ago she developed redness of her left breast. She also reported associated fever and body aches. Reported temperature at home was 100. She was evaluated at urgent care and placed on a course of cephalexin. Yesterday, when she woke up, the redness had significantly worsened extending over to her right breast and over her abdominal wall. Patient reports no further fever since yesterday. Patient denies any known trauma to the area or bites. No noticeable drainage. She denies chest pain and shortness of breath. No lightheadedness, dizziness, diaphoresis, syncopal events. She denies abdominal pain, nausea, vomiting, diarrhea. No urinary symptoms. In the ED, patient is hemodynamically stable. There is no leukocytosis or fever. Patient was given IV ceftriaxone and IV vancomycin. Principal Diagnosis cellulitis Of anterior chest wall Discharge Exam Constitutional WD/WN, vitals as above no acute distress Eyes PERRL, conjunctivae normal, anicteric sclerae ENMT external ear and nose normal, oropharynx normal Neck trachea midline, no thyromegaly Respiratory normal respiratory effort, lungs clear to auscultation Cardiovascular RRR, no murmur, no edema Chest (Breasts) normal inspection/palpation of breasts (Improvement of erythema on bilateral breast, no pain or discomfort) Breast: + abnormal inspection of breast (diffuse erythema bilateral breast area L> r /increased warmth and tendernes) Musculoskeletal no cyanosis or clubbing, extremities motor strength 5/5 Skin + rash (Improved erythema on the chest wall and bilateral breast area) Neurologic PERRL, EOMI, accommodation nl, no face palsy, no dysarthria Psychiatric A+Ox3, euthymic affect Discharge Data Allergies Allergy/AdvReac Type Severity Reaction Status Date / Time rofecoxib [From Vioxx] Allergy Intermediate Joint Pain Verified 04/15/19 14:28 Sulfa (Sulfonamide Allergy Intermediate Unknown Verified 04/15/19 14:28 Antibiotics) Consultations 04/15/19 14:46 ED Decision to Admit Stat 04/15/19 16:51 Consult General Surgery Routine Ordered Studies 04/15/19 14:46 breast limited Stat Hospital Course (1) Cellulitis of breast: Symptom has resolved, Minimum erythema, redness on anterior chest wall and bilateral breast area, Patient reports marked improvement of symptoms No complaint of itching or discomfort, We will DC p.o. prednisone, Medrol Dosepak patient's presentation does not typically appears to be a contact dermatitis/ presented with diffuse cellulitis - involving large area of ant abdominal wall , bilateral lower breast area started few days back Treated with IV vancomycin and rocephin - Antibiotic changed to p.o. Augmentin, complete total 10 days of course, No fever or chills no white count, no evidence of sepsis patient is stable to be discharged home with oral antibiotics (2) Breast abscess: Resolved, improvement of area of redness tenderness and swelling in last 48 hours -Patient admitted with complaint of bilateral breast and abdominal wall redness that began 2 days ago. Patient reports patient had generalized body ache, feverish chills prior development of redness and cellulitis on the breast area Lyme titer negative Remains hemodynamically stable no fever no leukocytosis -History of bilateral breast reduction June 2018 with [facility] in [place] -Breast ultrasound shows 1.0 cm fluid collection of the right breast with a 2.2 cm collection of the left breast suggestive of localized edema/phlegmon versus developing abscesses. -Outlined erythematous area with skin marker : area of redness appears to improved pt reports of improvement of symptom: decrease pain and discomfort since admission - Surgery consulted appreciate input, Recommends antibiotic treatment only no role of surgical procedure or drainage Has minimum pain and discomfort on bilateral breast area stable to be discharged home (3) DVT prophylaxis: -low risk scd and teds ambulate DISPOSITION ; Stable to be discharged home today Total Time Total Time Spent Total Time Spent (In Minutes): approx 35 mins Total Time Includes: Examination of the Patient, Discharge Planning and Medication Reconciliation Discharge Plan Discharge Items Patient Disposition: Home - Self-Care Reason For Visit: CELLULITIS Discharge Diagnosis: cellulitis Of anterior chest wall Activity: Resume your previous activity Non-emergency contact: Primary Care Provider Call non-emergency contact if: you have any medication questions Follow-up/Referrals: Randolph Chawla [Primary Care Provider] - 04/26/19 1:00 pm ([facility] [phone] Diet: Regular Addtl Attending Provider Instructions: Follow-up with family physician in a week, Complete antibiotic course : Augmentin 1 tablet twice daily for 6 more days Please take [id number] lactobacillus/probiotic while taking antibiotic to prevent antibiotic use induced diarrhea Pending Studies at Discharge: No Stand-Alone Forms: My [facility], Work/School Release (Inpt), Smoking Cessation Medications and DC Order Prescriptions: New amoxicillin-pot clavulanate [Augmentin] 875-125 mg tablet 1 tab PO BID Qty: 12 RF: 0 Continued ibuprofen 200 mg Tablet 600 mg PO Q6H PRN (Reason: Pain) RF: 0 omeprazole 20 mg capsule,delayed release(DR/EC) 20 mg PO QAM RF: 0 Discontinued cephalexin 500 mg capsule 500 mg PO QID RF: 0 Discharge Orders: Discharge Order (Routine); Ordered 04/18/19 Ordered By: Reina Ambrose Admission Data Admit Date/Time: 04/15/19 14:47 Attending Provider: Reina Ambrose Admit Provider: Aleyda Tuttle Primary Care Provider: Randolph Chawla Other Providers: Aleyda Tuttle ; Javier Matamoros Other Interventions: Discharge Summary Assessment (RN) Last Done: 04/18/19 14:27 DC Date/Time DO NOT enter until pt leaves facility: 04/18/19 16:17
--- NOTE | 2019-04-18 15:21 | Hospitalist Progress Note ---
Date of Service April 18, 2019 Assessment & Plan (1) Cellulitis of breast: Symptom has resolved, Minimum erythema, redness on anterior chest wall and bilateral breast area, Patient reports marked improvement of symptoms No complaint of itching or discomfort, We will DC p.o. prednisone, Medrol Dosepak patient's presentation does not typically appears to be a contact dermatitis/ presented with diffuse cellulitis - involving large area of ant abdominal wall , bilateral lower breast area started few days back Treated with IV vancomycin and rocephin - Antibiotic changed to p.o. Augmentin, complete total 10 days of course, No fever or chills no white count, no evidence of sepsis patient is stable to be discharged home with oral antibiotics (2) Breast abscess: Resolved, improvement of area of redness tenderness and swelling in last 48 hours -Patient admitted with complaint of bilateral breast and abdominal wall redness that began 2 days ago. Patient reports patient had generalized body ache, feverish chills prior development of redness and cellulitis on the breast area Lyme titer negative Remains hemodynamically stable no fever no leukocytosis -History of bilateral breast reduction June 2018 with [facility] in [place] -Breast ultrasound shows 1.0 cm fluid collection of the right breast with a 2.2 cm collection of the left breast suggestive of localized edema/phlegmon versus developing abscesses. -Outlined erythematous area with skin marker : area of redness appears to improved pt reports of improvement of symptom: decrease pain and discomfort since admission - Surgery consulted appreciate input, Recommends antibiotic treatment only no role of surgical procedure or drainage Has minimum pain and discomfort on bilateral breast area stable to be discharged home (3) DVT prophylaxis: -low risk scd and teds ambulate DISPOSITION ; Stable to be discharged home today Admission and Anticipated Discharge Date Admission Date: April 15, 2019 Anticipated date of discharge: 04/18/19 Subjective Patient sitting on chair, very comfortable, Had an uneventful night No fever or chills Almost resolution of redness, on bilateral breast and anterior chest wall, Has mild erythema around the breast fold area, no pain, no increased warmth Wants to be discharged home with possible Review of Systems Integumentary: + erythema (Erythema on anterior abdominal wall almost resolved) and + breast skin changes (Redness erythema on anterior part of ische víctor almost resolved, no tenderness no swelling) Physical Exam Constitutional: WD/WN, vitals as above no acute distress Eyes: PERRL, conjunctivae normal, anicteric sclerae ENMT: external ear and nose normal, oropharynx normal Neck: trachea midline, no thyromegaly Respiratory: normal respiratory effort, lungs clear to auscultation Cardiovascular: RRR, no murmur, no edema Chest (Breasts): normal inspection/palpation of breasts (Improvement of erythema on bilateral breast, no pain or discomfort) Musculoskeletal: no cyanosis or clubbing, extremities motor strength 5/5 Skin: + rash (Improved erythema on the chest wall and bilateral breast area) Neurologic: PERRL, EOMI, accommodation nl, no face palsy, no dysarthria Psychiatric: A+Ox3, euthymic affect Results & Data ([facility]) Vital Signs (Past 12 Hours) Vital Signs Temp Pulse Pulse Resp BP BP Pulse Ox 04/18/19 14:27 36.5 C 69 68 20 140/90 142/89 H 94 04/18/19 07:38 36.5 C 68 20 142/89 H 94
[2019-04-18] MEDS ORDERED: methylPREDNISolone 4 MG TAB PO SCH (21:00)
[2019-04-19] MEDS ORDERED: VANCOMYCIN TROUGH ONE (05:30)
[2019-04-19] MEDS ORDERED: methylPREDNISolone 4 MG TAB PO SCH (07:00)
[2019-04-20] MEDS ORDERED: methylPREDNISolone 4 MG TAB PO SCH (07:00)
[2019-04-21] MEDS ORDERED: methylPREDNISolone 4 MG TAB PO SCH (07:00)
[2019-04-22] MEDS ORDERED: methylPREDNISolone 4 MG TAB PO SCH (07:00)
== END 2019-04-18 16:17 | disposition home or self-care (01) | DRG 600 ==
LOC: ED 12:24 → SUATTDRO 14:47 → 4W 14:47